=== PATIENT | female | born 1970 | race Caucasian/White ===

== ENCOUNTER 2024-07-02 13:50 | Outpatient (CLI) | payer MEDICAID, SELFPAY ==
[2024-07-05 02:36] LABS: HPV Source Cervical; HPV, High Risk by TMA Not Detected
== END 2024-07-02 13:51 | disposition home or self-care (01) ==
PROVIDERS: PCP Family Medicine; Visit Provider Obstetrics & Gynecology
DX: Z12.4 Encounter for screening for malignant neoplasm of cervix (principal)
CPT/HCPCS: 87624; 87625; 88141; 88142

== ENCOUNTER 2024-08-04 08:27 | Outpatient (CLI) | payer MEDICAID, SELFPAY | END 2024-08-04 08:28 | disposition home or self-care (01) | PROVIDERS: PCP Family Medicine; Visit Provider Family Medicine | DX: Z00.00 Encounter for general adult medical examination without abnormal findings (principal); R76.8 Other specified abnormal immunological findings in serum; M19.90 Unspecified osteoarthritis, unspecified site; E78.00 Pure hypercholesterolemia, unspecified; R53.83 Other fatigue; G37.3 Acute transverse myelitis in demyelinating disease of central nervous system; R40.0 Somnolence; M54.12 Radiculopathy, cervical region; Z13.6 Encounter for screening for cardiovascular disorders; Z13.1 Encounter for screening for diabetes mellitus | CPT/HCPCS: 80053; 80061; 82306; 84443; 86376; 86812 ==

== ENCOUNTER 2024-08-20 13:21 | Outpatient (CLI) | payer MEDICAID, SELFPAY ==
--- NOTE | 2024-08-20 13:20 | CRLHL7_ITS ---
For Patients: As a result of the Century Cures Act, medical imaging exams and procedure reports are released immediately into your electronic medical record. You may view this report before your referring provider. If you have questions, please contact your health care provider. BILATERAL SCREENING MAMMOGRAM WITH COMPUTER-AIDED DETECTION AND TOMOSYNTHESIS TECHNIQUE: CC and MLO views were obtained. These mammographic images have been obtained using full-field digital technique. These mammographic images were interpreted with the benefit of computer-aided detection. Breast Tomosynthesis was used in this interpretation. COMPARISON FILM: Outside requested. FINDINGS: The breasts are heterogeneously dense, which may obscure small masses IMPRESSION: There is no radiographic evidence for malignancy. ASSESSMENT: BI-RADS Category 1: Negative RECOMMENDATION: Routine screening mammogram in 1 year. A lay language report of this examination will be provided to the patient. Jorje Ceballos M.D. Diagnostic Radiologist [email or web address] Transcribed: 1:36 p.opal donohue/Dictated by: Jorje Ceballos MD @ 08/26/2024 12:38:00 PM (Electronically Signed)
== END 2024-08-20 13:22 | disposition home or self-care (01) ==
LOC: MAMMO 13:22
PROVIDERS: PCP Family Medicine; Visit Provider Family Medicine
DX: Z12.31 Encounter for screening mammogram for malignant neoplasm of breast (principal); R92.333 Mammographic heterogeneous density, bilateral breasts
CPT/HCPCS: 77063; 77067

== ENCOUNTER 2024-09-15 11:12 | Outpatient (CLI) | payer MEDICAID, SELFPAY ==
--- NOTE | 2024-09-23 12:53 | W.PM.SLEEP ---
Sleep Study Details Details Date of Sleep Study: 09/15/24 Sleep Study Details: STUDY TYPE:? Home unattended ? BMI:? 29.2 ORDERING PROVIDER:? Bertram INDICATION:? Concern about sleep apnea ? SLEEP SUMMARY:? 457 minutes monitor RESPIRATORY SUMMARY:? AHI 4.1 Low oxygen 92 Snoring 87.1% PERIODIC LIMB MOVEMENTS OF SLEEP:? Not record CARDIAC:? Range 50-79, mean 60.5 IMPRESSION:? The overall study is within normal limits. RECOMMENDATION: If sleep disorder strongly suspected would recommend an in-lab study.
== END 2024-09-15 11:13 | disposition home or self-care (01) ==
LOC: SLEEP 11:13
PROVIDERS: PCP Family Medicine; Visit Provider Otolaryngology
DX: R40.0 Somnolence (principal)
CPT/HCPCS: 95806

== ENCOUNTER 2025-08-24 15:00 | Outpatient (CLI) | payer MEDICAID, SELFPAY | END 2025-08-24 15:01 | disposition home or self-care (01) | LOC: NFLDREF 08-28 03:38 | PROVIDERS: PCP Family Medicine; Referring Provider Family Medicine; Visit Provider Family Medicine | DX: E78.5 Hyperlipidemia, unspecified (principal); Z00.00 Encounter for general adult medical examination without abnormal findings | CPT/HCPCS: 80053; 80061; 82306 ==